=== PATIENT | female | born 1945 | race Caucasian/White ===

== ENCOUNTER 2020-10-06 12:05 | Emergency (ER) | payer MEDICARE, OTHER ==
[~2020-10-06] VITALS: Ht 154.9 cm; Wt 66.2 kg
--- NOTE | 2020-10-06 12:26 | NUR ---
THE PATIENT BIBS FOR C/O COUGH X2DAYS. OXYGEN SATURATION IN ROOM AIR IS AT 96%. RESPIRATION REGULAR AND UNLABORED. DENIES PAIN. ATTACHED TO THE MONITOR. WILL CONTINUE TO MONITOR THE PATIENT.
--- NOTE | 2020-10-06 12:36 | NUR ---
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
[2020-10-06] MEDS ORDERED: BENZ-13 PO (12:48)
[2020-10-06] MEDS ORDERED: AZIT1PAC PO (12:48)
[2020-10-06 13:18] VITALS: BP 132/86
== END 2020-10-06 13:18 | disposition home or self-care (01) ==
LOC: ER 12:23
DX: U07.1 COVID-19 (principal); J18.9 Pneumonia, unspecified organism; R05 Cough; I10 Essential (primary) hypertension; E78.00 Pure hypercholesterolemia, unspecified; Z79.899 Other long term (current) drug therapy
CPT/HCPCS: 71045-TC